=== PATIENT | female | born 1965 | race Two or more races ===

== ENCOUNTER 2023-05-08 09:12 | Emergency (ER) | payer OTHER, SELFPAY ==
[2023-05-08 09:27] VITALS: BP 127/71; PULSE 91; RESP 18; TEMP 36.7; O2SAT 99; BMI 17.2
--- NOTE | 2023-05-08 12:04 | ED.GENADULT ---
HPI - General Adult General Chief complaint: Upper Respiratory Symptoms Stated complaint: Stomach Pain Time Seen by Provider: 05/08/23 11:25 Source: patient Mode of arrival: ambulatory Limitations: no limitations History of Present Illness HPI narrative: This is a 57-year-old female history of lupus, cataracts presenting to the emergency department for evaluation of fatigue, malaise, myalgias, epigastric pain after eating, sore throat, she had a bloody nose, diffuse headache without visual disturbances, dizziness or weakness this is all been going on for the past 3 days. Patient just does not feel right. Patient reports she feels a burning sensation in her epigastric region after eating. Her eyes have been much spray drier than usual. Denies chest pain, shortness of breath, nausea, vomiting, headache, vision changes, dizziness and weakness at this time Related Data Previous Rx's Medication Instructions Recorded aluminum-mag hydroxide-simethicone 5 ml PO 5XD PRN dyspepsia #355 mL 05/08/23 200 mg-200 mg-20 mg/5 mL oral susp (Maalox Advanced) polyethylene glycol 400 1 % eye 1 drp ophthalmic (eye) BID PRN dry 05/08/23 drops (Visine Dry Eye Relief) eye(s) #15 mL Allergies Allergy/AdvReac Type Severity Reaction Status Date / Time No Known Allergies Allergy Verified 05/08/23 09:29 Review of Systems Review of Systems: Constitutional : No Weight loss, No Fever, No Chills, + Fatigue, + Malaise ENT/Mouth : + sore throat, No Rhinorrhea Eyes: No Eye Pain, No Swelling, No Redness Cardiovascular : No Chest Pain, No SOB, No Dyspnea on Exertion, No Orthopnea, No Edema, No Palpitations Respiratory : No Cough, No Sputum, No Wheezing Gastrointestinal : No Nausea, No Vomiting, No Diarrhea, No Constipation, No abdominal Pain, No Hematochezia, No Melena Genitourinary : No Dysuria, No Urinary Frequency, No Hematuria, Musculoskeletal : No joint pain, + Myalgias, No Joint Swelling Skin : No Skin Lesions, No rash Neuro : No Weakness, No Numbness, No Dizziness, + Headache Psych : No Anxiety/Panic, No Depression Heme/Lymph: No Bruising, No Bleeding,No Lymphadenopathy Endocrine : No Polyuria, No Polydipsia All other systems reviewed and are negative Yes all other systems are reviewed and are negative PMFSH Past Medical History Attestation statement: The following information was validated with the patient. Source: old records reviewed and nursing notes reviewed Onset Date is defined in the Problem List Problems that require an onset date and time if occurred within 24 hrs of arrival to the ED Aortic Dissection and Rupture; Neurologic impairment; Cardiopulmonary Arrest; Endotracheal Intubation; Insertion or Replacement of Mechanical Circulatory Assist Device Social History Social History Advance Directives: No Advance Directives Information Provided: No Physical Exam ED Vital Signs: Vital Signs - 24 hr 05/08/23 09:27 Temperature 98.1 F Pulse Rate 91 Respiratory Rate 18 Blood Pressure 127/71 Pulse Oximetry 99 Oxygen Delivery Method Room Air BMI result Body Mass Index 17.2 vss Appearance: Alert.? Oriented X3.? No acute distress.? Head: Normocephalic, atraumatic, no step-offs or deformities Eyes: Pupils equal, round and reactive to light.? ENT: Pharynx normal.? Neck: Normal inspection.? Neck supple.? CVS: Normal heart rate and rhythm.? Pulses normal.? Respiratory: No respiratory distress.? Breath sounds normal.? Abdomen: Soft and nontender.? Skin: Skin warm and dry.? Normal skin color.? Normal skin turgor.? Extremities: No lower extremity edema.? No calf ttp. 5/5 strength to bilateral upper and lower extremities Neuro: Oriented X 3.? No motor deficit.? No sensory deficit. CN 2-12 intact Course Reevaluation(s) Reevaluation #1: Flu, COVID, RSV negative. Strep negative. Educated patient on diagnosis and treatment plan, answered all question, patient verbalizes understanding. At this time patient will be discharged home, advised to return with new or worsening symptoms. Educated on worrisome signs and symptoms and when to return. At this time I feel comfortable discharge home. Time: 12:11 Medical Decision Making Medical Decision Making MDM Narrative: 49-year-old female presents with viral symptoms for the past 3 days. Also reports burning in the epigastric region after eating Physical examination benign This is likely viral illness versus gastroenteritis versus flu versus COVID versus RSV. Unlikely intracranial hemorrhage, stroke, posterior stroke, unlikely acute abdomen obstruction, appendicitis, diverticulitis, pancreatitis, cholecystitis, pneumonia, PE, ACS, peritonsillar abscess, retropharyngeal abscess, threat to airway, epiglottitis. Abdominal pain could be GERD versus gastritis Plan will give Maalox for GERD/gastritis. Will send patient home with for case Ng eyedrops. Supportive measures. Educated patient on diagnosis and treatment plan, answered all question, patient verbalizes understanding. At this time patient will be discharged home, advised to return with new or worsening symptoms. Educated on worrisome signs and symptoms and when to return. At this time I feel comfortable discharge home. Differential Diagnosis Differential Diagnoses: The differential diagnosis associated with the presentation includes his is likely viral illness versus gastroenteritis versus flu versus COVID versus RSV. Unlikely intracranial hemorrhage, stroke, posterior stroke, unlikely acute abdomen obstruction, appendicitis, diverticulitis, pancreatitis, cholecystitis, pneumonia, PE, ACS, peritonsillar abscess, retropharyngeal abscess, threat to airway, epiglottitis. Abdominal pain could be GERD versus gastritis Admission/Observation Consideration of admission/observation: Escalation of care including admission/observation considered Unlikely Lab Data MDM Lab Attestation statement: I reviewed the patient's lab results. Labs: Lab Results 05/08/23 Range/Units 10:27 Influenza Type A (PCR) NEGATIVE (Negative) Influenza Type B (PCR) NEGATIVE (Negative) RSV RNA Qual (PCR) NEGATIVE (Negative) SARS-CoV-2 RNA (RT-PCR) NEGATIVE (Negative) S. pyogenes GrpA VIJAYA Negative (Negative) Tests considered The following testing was considered but not selected: Patient mostly has viral symptoms, no indication for abdominal imaging also no abdominal tenderness to palpation on exam. Patient eating and drinking, unlikely metabolic derangements no need for labs at this time. No chest pain, shortness of breath therefore no need for EKG, labs. Chronic Conditions Patient?s care impacted by: Other (lupus ) Discharge Plan Discharge Clinical Impression: Viral infection, Dry eye, Gastritis Patient Disposition: Home, Self-Care Instructions: How to Use Eye Drops (ED), Viral Syndrome (ED) Additional Instructions: Take your medications as prescribed. If you were prescribed antibiotics today, it is important that you take your medication to their entirety, do not skip any doses, do not finish them early. Follow-up with your primary care provider this week. Return to the emergency department with new or worsening symptoms. In case of emergency call 911 XR/XR chest 2V IMPRESSION: No acute cardiopulmonary disease. Prescriptions: New Visine Dry Eye Relief 1 % drops 1 drp ophthalmic (eye) BID PRN (Reason: dry eye(s)) Qty: 15 0RF alum-mag hydroxide-simeth [Maalox Advanced] 200-200-20 mg/5 mL suspension 5 ml PO 5XD PRN (Reason: dyspepsia) Qty: 355 0RF Rx Instructions: administer between meals and at bedtime Referrals: Fozia Johnson MD [Primary Care Provider] - 2 days Stand Alone Forms: Work/School Release
[2023-05-08 12:25] VITALS: BP 128/78; PULSE 89; RESP 16; TEMP 36.7; O2SAT 99
== END 2023-05-08 12:31 | disposition home or self-care (01) ==
PROVIDERS: Emergency Provider Emergency Medicine; PCP Internal Medicine
DX: B34.9 Viral infection, unspecified (principal); H04.129 Dry eye syndrome of unspecified lacrimal gland; K29.70 Gastritis, unspecified, without bleeding; R10.13 Epigastric pain; J02.9 Acute pharyngitis, unspecified; M32.9 Systemic lupus erythematosus, unspecified; R51.9 Headache, unspecified; Z20.822 Contact with and (suspected) exposure to COVID-19; Z20.828 Contact with and (suspected) exposure to other viral communicable diseases
CPT/HCPCS: 0241U; 71046; 87651; 99283

== ENCOUNTER 2023-05-26 11:14 | Emergency (ER) | payer OTHER, SELFPAY ==
--- NOTE | ~2023-05-26 | CT_ITS ---
EXAMINATION: CT ABDOMEN AND PELVIS WITHOUT CONTRAST CLINICAL INFORMATION: Abdominal pain. Abnormal renal function. Fever. Cough. COMPARISON: Chest x-ray today TECHNIQUE: Multidetector volumetric imaging was performed from the superior aspect of the liver through the pubic symphysis. Sagittal and coronal reformatted images were obtained on the technologist's workstation. This CT examination was performed using dose optimization techniques as appropriate, variously including the following: *Automated exposure control *Adjustment of mA and/or kV according to patient size (this includes techniques or standardized protocols for targeted exams where dose is matched to indication/reason for exam; i.e. extremities or head) *Use of iterative reconstruction technique DLP: 275 mGy-cm FINDINGS: LUNG BASES: Patchy and partially consolidated airspace opacities in the right middle lobe is seen with pneumonia. Smaller focal airspace opacity in the lingula may be additional site of pneumonia versus atelectasis. There is no pleural effusion. LIVER, GALLBLADDER, AND BILIARY TREE: The liver is normal in size, shape, and attenuation. No focal hepatic lesion or biliary ductal dilatation is present. Gallbladder is contracted. No bile duct dilatation. PANCREAS: Unremarkable. SPLEEN: Unremarkable. ADRENAL GLANDS: Unremarkable. KIDNEYS AND URETERS: There is calcification in the medullary region of both kidneys, medullary calcinosis. No renal or ureteral calculus. No hydronephrosis. 1 cm cortical cyst lower pole right kidney. No follow-up imaging is recommended for simple renal cyst.. BLADDER: Unremarkable. GASTROINTESTINAL TRACT: There is no acute abnormality. There is no diverticulitis. There is no bowel wall thickening /edema. There is no bowel obstruction. There is a moderate volume of stool in the colon. The appendix is nonvisualized . The small bowel loops are unremarkable. The stomach is normal. There is no hiatal hernia. ABDOMINAL WALL: No significant hernia is appreciated. LYMPH NODES: Normal. VASCULAR: Unremarkable. PELVIC VISCERA: Uterus is retroverted. Lobular contour of the fundus of uterus may be due to uterine fibroids. There is no adnexal mass. No fluid in the cul-de-sac. OSSEOUS STRUCTURES: Coarse trabecular markings the visualized osseous structures. Question osteodystrophy in the presence of medullary calcinosis. There is central depression of the endplates of all the vertebrae due to the osteopenia. CT/CT abdomen pelvis wo IV con IMPRESSION: 1. Right middle lobe pneumonia. 2. No acute abnormality the abdomen or pelvis. Fleischner guidelines were followed.
--- NOTE | ~2023-05-26 | XR_ITS ---
EXAMINATION: XR CHEST CLINICAL INFORMATION: Cough and wheezing COMPARISON: Chest x-ray May 08, 2023 TECHNIQUE: 2 views of the chest were obtained. FINDINGS: Patchy and partially consolidated airspace disease consistent with pneumonia in the right middle lobe. Left lung normally aerated. No pleural effusion. Heart size is normal. No pulmonary vascular congestion. XR/XR chest 2V IMPRESSION: Right middle lobe pneumonia.
[2023-05-26 11:31] VITALS: BP 127/84; PULSE 113; RESP 18; TEMP 37.5; O2SAT 100; BMI 16.9
--- NOTE | 2023-05-26 11:38 | ED_ITS ---
HPI - General Adult General Chief complaint: General Medical Stated complaint: Body aches, abd pain, sore throat Time Seen by Provider: 05/26/23 11:25 Source: patient and interpreter and translator Mode of arrival: ambulatory Limitations: language barrier History of Present Illness HPI narrative: 58 yo female with no known medical history here with complaints of 4 days of non-productive cough, shortness of breath, wheezing, upper abdominal pain, body aches and fatigue. No chest pain, vomiting, diarrhea, fever, skin rash, neck pain/stiffness, headache, night sweats or weight loss. No recent travel or sick contact, Denies smoking history, alcohol/substance use. Related Data Previous Rx's Medication Instructions Recorded aluminum-mag hydroxide-simethicone 5 ml PO 5XD PRN dyspepsia #355 mL 05/08/23 200 mg-200 mg-20 mg/5 mL oral susp (Maalox Advanced) polyethylene glycol 400 1 % eye 1 drp ophthalmic (eye) BID PRN dry 05/08/23 drops (Visine Dry Eye Relief) eye(s) #15 mL amoxicillin 250 mg-potassium 1 tab PO BID #14 tabs 05/26/23 clavulanate 125 mg tablet azithromycin 250 mg tablet See Rx Instructions PO .COMPLEX #6 05/26/23 tabs Allergies Allergy/AdvReac Type Severity Reaction Status Date / Time No Known Allergies Allergy Verified 05/08/23 09:29 Review of Systems 2 Review of Systems: Yes all other systems are reviewed and are negative Constitutional: Constitutional: Reports no additional constitutional complaints, Reports body ache(s), Denies chills, Reports fatigue, Denies fever(s), Denies headache(s) and Denies weakness Eyes: Eyes: Reports no additional eye complaints and Denies change in vision ENT: Reports system reviewed and no additional complaints, except as documented, Denies dizziness, Denies headache(s), Denies nasal congestion, Denies nasal discharge and Denies neck pain Cardiovascular: Cardiovascular: Reports no additional cardiovascular complaints, Denies chest pain, Denies leg edema and Reports dyspnea Respiratory: Respiratory: Reports no additional respiratory complaints, Reports cough and Reports dyspnea Gastrointestinal: Gastrointestinal: Reports no additional gastrointestinal complaints, Reports abdominal pain, Denies diarrhea, Denies nausea and Denies vomiting Genitourinary: Genitourinary: Reports no additional female genitourinary complaints and Denies urinary incontinence Musculoskeletal: Musculoskeletal: Reports no additional musculoskeletal complaints, Denies back pain, Denies arthralgias, Denies joint swelling, Denies neck pain, Denies numbness and Denies tingling Integumentary/Breasts: Skin/Breast: Reports system reviewed and no additional complaints, except as docu and Denies rash Neurologic: Reports system reviewed and no additional complaints, except as documented, Denies Abnormal speech present, Denies dizziness, Denies headache(s), Denies numbness, Denies tingling and Denies weakness Endocrine: Endocrine: Reports fatigue [facility] Past Medical History Attestation statement: The following information was validated with the patient. Source: old records reviewed and nursing notes reviewed Onset Date is defined in the Problem List Problems that require an onset date and time if occurred within 24 hrs of arrival to the ED Aortic Dissection and Rupture; Neurologic impairment; Cardiopulmonary Arrest; Endotracheal Intubation; Insertion or Replacement of Mechanical Circulatory Assist Device Social History Social History Smoked in Last 30 Days: No Advance Directives: No Advance Directives Information Provided: Yes Physical Exam ED Vital Signs: Vital Signs - 24 hr 05/26/23 11:31 05/26/23 12:12 05/26/23 13:43 Temperature 99.5 F 98.8 F Pulse Rate 113 H 109 H 92 Respiratory Rate 18 17 16 Blood Pressure 127/84 104/65 Pulse Oximetry 100 98 Oxygen Delivery Method Room Air Room Air 05/26/23 14:09 Temperature 97.5 F Pulse Rate 90 Respiratory Rate 20 Blood Pressure 96/60 Pulse Oximetry 99 Oxygen Delivery Method Room Air BMI result Body Mass Index 16.9 Const General: cooperative, healthy appearing, comfortable and no acute distress Orientation/consciousness: patient oriented x3 Limitations: no limitations HENMT Head: Yes normal to inspection Ears: hearing grossly normal bilaterally and TM's normal bilaterally General nose exam: Normal external nose present Face and sinus: Yes normal facial exam Mouth: Normal oral and palatal mucosa present Throat: Yes posterior oropharynx normal, Yes tonsils normal and Yes uvula midline Eyes General: appearance normal, both eyes and all related structures Pupils: Equal, round and reactive pupils present Neck Neck: Yes normal visual inspection, Yes full ROM, Yes no lymphadenopathy and Yes no meningeal signs Chest Chest palpation & inspection: normal inspection of the chest Resp Effort & Inspection: normal respiratory effort Auscultation: wheezes Cardio Rate: regular rate Rhythm: regular rhythm Peripheral pulses: Peripheral pulses 2+ throughout GI Inspection: Yes normal to inspection Palpation (GI): Soft to palpation and nontender Auscultation: normal bowel sounds Back/Spine/Pelvis Thoracic/Lumbar Spine: thoracic and lumbar spine normal to inspection Skin General skin exam: no rashes or lesions noted Neuro General: patient oriented x3, no meningeal signs, no focal motor deficits and normal sensation to monofilament Cranial nerves: Yes Equal, round and reactive pupils present Cognition (Neuro): normal cognition Speech: No Abnormal speech present Gait exam (Neuro): Normal gait present Motor exam (neuro): 5/5 motor strength present throughout Extrem General: Yes normal to inspection, Yes no pedal edema and Yes no calf tenderness Course Course Course Narrative: 1200-renal function elevated. Patient does report history of chronic kidney disease. Unaware baseline creatinine. She is followed by Nephrology at [facility]. Will attempt to get records. In the meantime will check UA, give IVF Reevaluation(s) Reevaluation #1: 1245- I did receive nephrology notes from [facility]. Patient is followed by Dr. Rojas and last saw him on December 19. Per his note she has a history of lupus nephritis and is on low-dose losartan and mycophenolate. Her baseline creatinine fluctuates between 2.6 and 3.4 she has a kidney biopsy from December 26 which shows acute tubular injury with microcystic dilation an epithelial reactive changes, glomeruli with mild mesangial expansion, mod to severe intersistial fibrosis and moderate tubular atrophy, interstital calcifications with nephrocalcinosis Reevaluation #2: 1600-chest x-ray shows pneumonia. No hypoxia. Patient ambulated in the emergency department with oxygen saturations greater than 95%. CT abdomen pelvis shows no acute finding. Renal function is at baseline. Will discharge patient home with oral antibiotics. Dosage of antibiotics was done based on renal function with pharmacy. Reviewed worrisome signs and symptoms of when to return to the emergency room. Comfortable plan for discharge home Medications Administered Discontinued Medications Generic Name Dose Route Start Last Admin Trade Name Freq PRN Reason Stop Dose Admin Acetaminophen 975 mg 05/26/23 11:37 05/26/23 11:57 Acetaminophen 325 Mg Tablet PO 05/26/23 11:38 975 mg ONCE ONE Administration Albuterol/Ipratropium 3 ml 05/26/23 12:08 05/26/23 12:12 Albuterol/Iprat 2.5/0.5mg 3 Ml Ampul.Neb INHALE 05/26/23 12:09 3 ml ONCE ONE Administration Sodium Chloride 1,000 mls @ 999 mls/hr 05/26/23 12:16 05/26/23 13:42 Ns IV 05/26/23 13:16 Infused .Q1H1M STA Infusion Medical Decision Making Medical Decision Making [facility] Narrative: 58 yo female with no known medical history here with complaints of 4 days of non-productive cough, shortness of breath, wheezing, upper abdominal pain, body aches and fatigue. No chest pain, vomiting, diarrhea, fever, skin rash, neck pain/stiffness, headache, night sweats or weight loss. No recent travel or sick contact, Denies smoking history, alcohol/substance use. Patient with wheezing on exam. Mild tachycardia, low grade fever Exam otherwise benign. Will need labs, viral testing, CXR Will give APAP, albuterol Differential Diagnosis Differential Diagnoses: The differential diagnosis associated with the presentation includes viral syndrome, pna low concern for PE Admission/Observation Consideration of admission/observation: Escalation of care including admission/observation considered Patient has pneumonia. Nontoxic. No hypoxia or tachypnea to suggest need for supplemental oxygen. Lab Data [facility] Lab Attestation statement: I reviewed the patient's lab results. 05/26/23 11:48 05/26/23 11:48 Labs: Lab Results 05/26/23 05/26/23 Range/Units 11:48 13:26 WBC 12.6 H (4.8-10.8) X10*3/uL RBC 4.96 (4.20-5.50) X10*6/uL Hgb 13.9 (12.0-16.0) g/dl Hct 41.8 (37.0-47.0) % MCV 84.3 (80.0-98.0) fL MCH 28.0 (27.0-33.0) pg MCHC 33.3 (31.0-35.0) g/dl RDW 14.6 (11.0-16.0) % Plt Count 331 (160-400) X10*3/uL MPV 10.7 (9.4-12.3) fL Immature Gran % (Auto) 0.7 H (0.0-0.4) % Neut % (Auto) 86.4 H (45-73) % Lymph % (Auto) 5.8 L (20-40) % Hod[place]eman % (Auto) 6.1 (2-11) % Eos % (Auto) 0.8 (0-4) % Baso % (Auto) 0.2 (0-2) % Lymph # (Auto) 0.7 L (1.2-4.9) X10*3/uL [place]eman # (Auto) 0.8 (0.1-1.2) X10*3/uL Eos # (Auto) 0.1 (0.0-0.4) X10*3/uL Baso # (Auto) 0.0 (0.0-0.2) X10*3/uL Abs Immat Gran (auto) 0.09 H (0.00-0.03) X10*3/uL Absolute Neuts (auto) 10.9 H (2.0-8.3) x10*3/uL Absolute Nucleated RBC 0.000 (0.0-0.012) X10*3/uL Nucleated RBC % (auto) 0.0 (0.0-0.2) /100WBC Sodium 137 (135-145) mmol/L Potassium 3.3 (3.3-5.1) mmol/L Chloride 107 (96-108) mmol/L Carbon Dioxide 16 L (22-29) mmol/L Anion Gap 17 (12-20) BUN 45 H (9-16) mg/dL Creatinine 3.28 H (0.5-1.4) mg/dL Estim Creat Clear Calc 11.4 Estimated GFR 14 Random Glucose 110 (60-115) mg/dL Lactic Acid 0.8 (0.5-2.0) mmol/L Calcium 9.6 (8.4-10.2) mg/dL Total Bilirubin 0.2 (0.0-1.0) mg/dL Direct Bilirubin < 0.2 (0.0-0.5) mg/dL AST 19 (5-31) U/L ALT 19 (0-31) U/L Alkaline Phosphatase 154 H (39-117) U/L Total Protein 9.4 H (6.5-8.0) g/dL Albumin 4.0 (3.5-5.0) g/dL Lipase 102 H (8-78) U/L Urine Color Yellow Urine Appearance Clear Urine pH 6.5 (5.0-9.0) Ur Specific [place] <= 1.005 (1.005-1.025) Urine Protein 30 (1+) H (Neg-Trace) mg/dL Urine Glucose (UA) Negative (Negative) mg/dL Urine Ketones Negative (Negative) mg/dL Urine Blood Negative (Negative) Urine Nitrite Negative (Negative) Ur Leukocyte Esterase Negative (Negative) Urine RBC 0-2 (0-2) /HPF Urine WBC 0-5 (0-5) /HPF Ur Squamous Epith Cells 0-2 (0-2) /HPF Urine Bacteria None Seen (None Seen) Hyaline Casts 0-2 (0-2) /LPF COVID-19 (DAVID) Negative (Negative) COVID-19 Clin Com See Note Influenza Type A (VIJAYA) Negative (Negative) Influenza Type B (VIJAYA) Negative (Negative) Influenza A & B Note See Note Independent Interpretation I performed an independent interpretation of an: Plain X-Ray and CT Scan Interpretation: I independently reviewed the x-ray and agree with rad report I independently reviewed the CT scan and the x-ray and agree with the radiology report Radiology Impression Discussion of test interpretation with radiology: I have reviewed the radiologist's reading. Radiologist Impression: [place] [id number] XRay Report Signed Patient: Sharon Grewal MR#: [id number] : 1965 Acct:[id number] Age/Sex: 58 / F ADM Date: 05/26/23 Loc: .ED Attending Dr: Ordering Physician: Tiana Short NP Date of Service: 05/26/23 Procedure(s): XR chest 2V Accession Number(s): [id number] cc: Fozia Johnson MD; Tiana Short NP~ EXAMINATION: XR CHEST CLINICAL INFORMATION: Cough and wheezing COMPARISON: Chest x-ray May 08, 2023 TECHNIQUE: 2 views of the chest were obtained. FINDINGS: Patchy and partially consolidated airspace disease consistent with pneumonia in the right middle lobe. Left lung normally aerated. No pleural effusion. Heart size is normal. No pulmonary vascular congestion. XR/XR chest 2V IMPRESSION: Right middle lobe pneumonia. [address] [address] [address] Scan Report Signed Patient: Sharon Grewal MR#: [id number] : 1965 Acct:[id number] Age/Sex: 58 / F ADM Date: 05/26/23 Loc: HO.ED Attending Dr: Ordering Physician: Tiana Short NP Date of Service: 05/26/23 Procedure(s): CT abdomen pelvis wo IV con Accession Number(s): [id number] cc: Fozia Johnson MD; Tiana Short NP~ EXAMINATION: CT ABDOMEN AND PELVIS WITHOUT CONTRAST CLINICAL INFORMATION: Abdominal pain. Abnormal renal function. Fever. Cough. COMPARISON: Chest x-ray today TECHNIQUE: Multidetector volumetric imaging was performed from the superior aspect of the liver through the pubic symphysis. Sagittal and coronal reformatted images were obtained on the technologist's workstation. This CT examination was performed using dose optimization techniques as appropriate, variously including the following: *Automated exposure control *Adjustment of mA and/or kV according to patient size (this includes techniques or standardized protocols for targeted exams where dose is matched to indication/reason for exam; i.e. extremities or head) *Use of iterative reconstruction technique DLP: 275 mGy-cm FINDINGS: LUNG BASES: Patchy and partially consolidated airspace opacities in the right middle lobe is seen with pneumonia. Smaller focal airspace opacity in the lingula may be additional site of pneumonia versus atelectasis. There is no pleural effusion. LIVER, GALLBLADDER, AND BILIARY TREE: The liver is normal in size, shape, and attenuation. No focal hepatic lesion or biliary ductal dilatation is present. Gallbladder is contracted. No bile duct dilatation. PANCREAS: Unremarkable. SPLEEN: Unremarkable. ADRENAL GLANDS: Unremarkable. KIDNEYS AND URETERS: There is calcification in the medullary region of both kidneys, medullary calcinosis. No renal or ureteral calculus. No hydronephrosis. 1 cm cortical cyst lower pole right kidney. No follow-up imaging is recommended for simple renal cyst.. BLADDER: Unremarkable. GASTROINTESTINAL TRACT: There is no acute abnormality. There is no diverticulitis. There is no bowel wall thickening /edema. There is no bowel obstruction. There is a moderate volume of stool in the colon. The appendix is nonvisualized . The small bowel loops are unremarkable. The stomach is normal. There is no hiatal hernia. ABDOMINAL WALL: No significant hernia is appreciated. LYMPH NODES: Normal. VASCULAR: Unremarkable. PELVIC VISCERA: Uterus is retroverted. Lobular contour of the fundus of uterus may be due to uterine fibroids. There is no adnexal mass. No fluid in the cul-de-sac. OSSEOUS STRUCTURES: Coarse trabecular markings the visualized osseous structures. Question osteodystrophy in the presence of medullary calcinosis. There is central depression of the endplates of all the vertebrae due to the osteopenia. CT/CT abdomen pelvis wo IV con IMPRESSION: 1. Right middle lobe pneumonia. 2. No acute abnormality the abdomen or pelvis. Fleischner guidelines were followed. External Record Review External record reviewed: Outpatient record Discharge Plan Discharge Clinical Impression: Pneumonia Patient Disposition: Home, Self-Care Instructions: Pneumonia (ED) Additional Instructions: Lab work is reassuring. Take Tylenol for any pain or fever. Use the albuterol inhaler 2 puffs every 4 hours as needed for cough or wheezing. Your chest x-ray shows pneumonia. Please take the antibiotics as prescribed. Please return for any worsening symptoms El trabajo de laboratorio es tranquilizador. Gerty Tylenol para cualquier dolor o fiebre. Utilice el inhalador de albuterol 2 inhalaciones cada 4 horas seg?n sea necesario para la tos o las sibilancias. Orozco radiograf?a de t?rax muestra neumon?a. Gerty los antibi?ticos seg?n lo prescrito. Por favor regrese si los s?ntomas empeoran. Prescriptions: New amoxicillin-pot clavulanate 250-125 mg tablet 1 tab PO BID Qty: 14 0RF azithromycin 250 mg tablet See Rx Instructions .ROUTE .COMPLEX Qty: 6 0RF Rx Instructions: For 250 mg dose pack: take 500 mg today (day 1), then 250 mg for 4 days (days 2-5) No Action Visine Dry Eye Relief 1 % drops 1 drp ophthalmic (eye) BID PRN (Reason: dry eye(s)) Qty: 15 0RF alum-mag hydroxide-simeth [Maalox Advanced] 200-200-20 mg/5 mL suspension 5 ml PO 5XD PRN (Reason: dyspepsia) Qty: 355 0RF Rx Instructions: administer between meals and at bedtime Referrals: Fozia Johnson MD [Primary Care Provider] - 1 week Print Language: Israeli
[2023-05-26 11:53] LABS: MANUAL DIFF FLAG NO
[2023-05-26 11:55] LABS: Basophils Percent Auto 0.2 % (0-2); Eosinophils Absolute Auto 0.1 X10*3/uL (0.0-0.4); Eosinophils Percent Auto 0.8 % (0-4); Hematocrit 41.8 % (37.0-47.0); Hemoglobin 13.9 g/dl (12.0-16.0); Imm Gran Abs Auto 0.09 X10*3/uL (0.00-0.03); Imm Gran Pct Auto 0.7 % (0.0-0.4); Lymphocytes Absolute Auto 0.7 X10*3/uL (1.2-4.9); Lymphocytes Percent Auto 5.8 % (20-40); Mean Corpuscular HGB Conc 33.3 g/dl (31.0-35.0); Mean Corpuscular Volume 84.3 fL (80.0-98.0); Mean Platelet Volume 10.7 fL (9.4-12.3); Monocytes Absolute Auto 0.8 X10*3/uL (0.1-1.2); Monocytes Percent Auto 6.1 % (2-11); Neutrophils Absolute Auto 10.9 x10*3/uL (2.0-8.3); Neutrophils Percent Auto 86.4 % (45-73); Platelet Count 331 X10*3/uL (160-400); Red Blood Count 4.96 X10*6/uL (4.20-5.50); Red Cell Distribution Width 14.6 % (11.0-16.0); White Blood Count 12.6 X10*3/uL (4.8-10.8)
[2023-05-26] MEDS: Acetaminophen 325 MG TABLET 975 MG PO (11:57)
[2023-05-26 12:05] LABS: Lactic Acid 0.8 mmol/L (0.5-2.0)
[2023-05-26 12:12] VITALS: PULSE 109; RESP 17; O2SAT 100
[2023-05-26] MEDS: Albuterol/Iprat 2.5/0.5MG 3 ML AMPUL.NEB INHALE (12:12)
[2023-05-26 12:13] LABS: Alanine Aminotransferase 19 U/L (0-31); Alkaline Phosphatase 154 U/L (39-117); Anion Gap 17 (12-20); Aspartate Amino Transferase 19 U/L (5-31); Bilirubin Direct < 0.2 mg/dL (0.0-0.5); Bilirubin Total 0.2 mg/dL (0.0-1.0); Blood Urea Nitrogen 45 mg/dL (9-16); COVID-19 Test Negative (Negative); Calcium 9.6 mg/dL (8.4-10.2); Carbon Dioxide 16 mmol/L (22-29); Chloride 107 mmol/L (96-108); Creatinine Clr Calc Pharmacy 11.4; Estimated Glomerular Filt Rate 14; Glucose Random 110 mg/dL (60-115); IDNOW Serial# 6674DD1D; Lipase 102 U/L (8-78); Potassium 3.3 mmol/L (3.3-5.1); Sodium 137 mmol/L (135-145); Total Protein 9.4 g/dL (6.5-8.0)
[2023-05-26] MEDS: 0.9 % Sodium Chloride 1,000 ML 999 ML IV (12:21)
[2023-05-26 12:38] LABS: IDNOW Serial# 58CA691E; Influenza A Negative (Negative); Influenza B2 Negative (Negative)
[2023-05-26 13:37] LABS: Appearance Urine Clear; Color Urine Yellow; Glucose Urine UA Negative (Negative); Leukocyte Esterase Urine Negative (Negative); Nitrite Urine Negative (Negative); PH 6.5 (5.0-9.0); Specific Gravity - Urine <= 1.005 (1.005-1.025); UMIC TRIGGER UACC YES; Urine Blood Negative (Negative); Urine Ketones Negative (Negative); Urine Protein 30 (1+) mg/dL (Neg-Trace)
[2023-05-26 13:40] LABS: Bacteria Urine None Seen (None Seen); Hyaline Casts Urine 0-2 /LPF (0-2); RBC Urine 0-2 /HPF (0-2); Squamous Epithelial Cell Urine 0-2 /HPF (0-2); WBC Urine 0-5 /HPF (0-5)
[2023-05-26 13:43] VITALS: BP 104/65; PULSE 92; RESP 16; TEMP 37.1; O2SAT 98
[2023-05-26 14:09] VITALS: BP 96/60; PULSE 90; RESP 20; TEMP 36.4; O2SAT 99
--- NOTE | 2023-05-26 14:33 | PC.NURSE ---
continues to rest quietly in room, awaiting results of CT scan. fluids have infused, only complaint at this time is being hungry. call sales remains within reach.
--- NOTE | 2023-05-26 16:03 | PC.NURSE ---
ambulated with oxygen maintaining 95-98% on room air
[2023-05-26 16:12] VITALS: O2SAT 98
[2023-05-26] MEDS: Albuterol Sulfate 90 MCG 8 GM INHALER 2 PUFF INHALE (16:12)
== END 2023-05-26 16:25 | disposition home or self-care (01) ==
PROVIDERS: Nurse Practitioner Family; Emergency Provider Emergency Medicine; PCP Internal Medicine
DX: J18.9 Pneumonia, unspecified organism (principal); J02.9 Acute pharyngitis, unspecified; M79.10 Myalgia, unspecified site; R05.9 Cough, unspecified; R06.02 Shortness of breath; R10.9 Unspecified abdominal pain; Z79.899 Other long term (current) drug therapy; Z11.52 Encounter for screening for COVID-19
CPT/HCPCS: 36415; 71046; 74176; 80048; 80076; 81001; 83605; 83690; 85025; 87040; 87502; 87635; 94640; 96360; 99284; 99285